=== PATIENT | male | born 1985 | race Caucasian/White ===

== ENCOUNTER 2019-06-29 08:59 | Day surgery (SDC) | payer OTHER ==
[~2019-06-29] VITALS: Ht 195.6 cm; Wt 124.5 kg
[2019-06-29 09:23] VITALS: BP 135/88
[2019-06-29] MEDS ORDERED: LACTATED RINGERS 1,000 ML IV SCH (09:31)
[2019-06-29] MEDS ORDERED: EPINEPHRINE TOPICAL SOLN 1 MG/ML, 30ML ONE (11:30)
[2019-06-29] MEDS ORDERED: CIPROFLOXACIN/HYDROCORTISONE EAR SUSP 0.2-1%, 10ML ONE (11:30)
[2019-06-29] MEDS ORDERED: LIDOCAINE 1%-EPI 1:100K, 20ML ONE (11:30)
[2019-06-29] MEDS ORDERED: FENTANYL PF 250 MCG/5ML ONE (12:20)
[2019-06-29] MEDS ORDERED: MIDAZOLAM 1 MG/ML, 2ML ONE (12:20)
[2019-06-29] MEDS ORDERED: MEPERIDINE/PF 50 MG/ML ONE (15:12)
[2019-06-29] MEDS ORDERED: DIAZEPAM 5 MG/ML, 2ML IVPush PRN (15:30)
[2019-06-29] MEDS ORDERED: HYDROmorphone 2 MG/ML, 1ML IVPush PRN (15:30)
[2019-06-29] MEDS ORDERED: OXYcodone 5 MG/5 ML ORAL.SOL UDC PO PRN (15:30)
[2019-06-29] MEDS ORDERED: PROMETHAZINE 25 MG/ML, 1ML IV PRN (15:30)
[2019-06-29] MEDS ORDERED: KETOROLAC 30 MG/1 ML IV PRN (15:30)
[2019-06-29] MEDS ORDERED: ACETAMINOPHEN 325 MG TABLET PO PRN (15:30)
[2019-06-29] MEDS ORDERED: MEPERIDINE/PF 25MG/0.5ML IVPush PRN (15:30)
[2019-06-29] MEDS ORDERED: ALBUTEROL SULFATE 2.5 MG/3 ML NPPB PRN (15:30)
[2019-06-29] MEDS ORDERED: LABETALOL 5MG/ML, 20ML IV PRN (15:30)
[2019-06-29] MEDS ORDERED: hydrALAzine 20 MG/ML, 1ML IV PRN (15:30)
[2019-06-29] MEDS ORDERED: FENTANYL PF 100 MCG/2ML IV PRN (15:30)
[2019-06-29] MEDS ORDERED: GLYCOPYRROLATE 0.2MG/1ML, 5ML ONE (15:32)
[2019-06-29] MEDS ORDERED: DEXAMETHASONE 4 MG/ML, 1ML ONE (15:32)
[2019-06-29] MEDS ORDERED: SUCCINYLCHOLINE 20 MG/ML, 10ML ONE (15:32)
[2019-06-29] MEDS ORDERED: PROPOFOL 10 MG/ML, 20ML ONE (15:32)
[2019-06-29] MEDS ORDERED: NEOSTIGMINE 1 MG/ML, 10ML ONE (15:32)
[2019-06-29] MEDS ORDERED: CEFAZOLIN 1,000 MG ONE (15:32)
[2019-06-29] MEDS ORDERED: ROCURONIUM 10MG/ML,5ML ONE (15:32)
[2019-06-29] MEDS ORDERED: ONDANSETRON 2MG/ML, 2ML ONE (15:32)
[2019-06-29] MEDS ORDERED: ACETAMINOPHEN 500 MG TABLET PO PRN (17:00)
[2019-06-29] MEDS ORDERED: MORPHINE SULFATE 4 MG/ML, 1ML IV PRN (17:00)
[2019-06-29 19:03] VITALS: BP 136/83
== END 2019-06-29 19:30 | disposition home or self-care (01) ==
LOC: OUT 08:59 → 4NE 16:46 → OUT 19:30
PROVIDERS: ATTEND Otolaryngology Facial Plastic Surgery
DX: H66.3X2 Other chronic suppurative otitis media, left ear (principal); H71.92 Unspecified cholesteatoma, left ear
CPT/HCPCS: 20926; 69645; 88304; 88305; 88311; J0690; J1100; J2175; J2250; J2405; J2704; J2710; J3010; J3490; J7120; G0378; J0330